=== PATIENT | female | born 1980 ===

== ENCOUNTER 2018-01-10 14:43 | Emergency (ER) | payer MEDICAID ==
[2018-01-10 15:09] VITALS: O2SAT 99
--- NOTE | 2018-01-10 15:17 | C.PDOC ---
History Of Present Illness 37-YEAR-OLD FEMALE, PRESENTS TO THE EMERGENCY DEPARTMENT CO RECURRING PANIC ATTACK. PS PENDING PSYCH APPT 01/14. CURRENT EPISODE SIM TO PRIOR, ASSOC L FACIAL AND PERIORAL PARESTHESIA. PS PARESTHESIA SIM TO PRIOR. HO PANIC ATTACKS X 5 YEARS, CURRENTLY NOT ON MEDS FOR SAME. "I'M JUST TIRED OF THIS HAPPENING". PS HAVING "ALOT OF STRESS" W HOUSING, FAMILY. EXAM NONTOXIC PSYCH CRYING BUT CONSOLABLE; CALM COOPERATIVE NO SI/SA, ACTIVE PSYCHOSIS, DRUG INTOX REMAINDER NEG MDM PT OFFERED CRISIS EVAL BUT DEFERS @ THIS TIME. DOES NOT WANT ADMISSION. Time Seen by Provider: 01/10/18 15:07 Chief Complaint (Nursing): Anxiety History Per: Patient History/Exam Limitations: no limitations Past Medical History Reviewed: Historical Data, Nursing Documentation, Vital Signs Vital Signs: Last Vital Signs Temp 98.8 F 01/10/18 15:07 Pulse 87 01/10/18 15:07 Resp 16 01/10/18 15:07 BP 118/80 01/10/18 15:07 Pulse Ox 99 01/10/18 16:11 - Medical History PMH: Anxiety Family History: States: No Known Family Hx - Social History Hx Alcohol Use: No Hx Substance Use: No - Immunization History Hx Tetanus Toxoid Vaccination: No Hx Influenza Vaccination: No Hx Pneumococcal Vaccination: No Review Of Systems Gastrointestinal: Negative for: Nausea, Vomiting Neurological: Positive for: Other ( L FACIAL AND PERIORAL PARESTHESIA. ) Psych: Positive for: Anxiety, Psychosis. Negative for: Suicidal ideation Physical Exam - Physical Exam Appears: Non-toxic, No Acute Distress, Other (PSYCH CRYING BUT CONSOLABLE; CALM COOPERATIVE NO SI/SA, ACTIVE PSYCHOSIS, DRUG INTOX) Skin: Normal Color, Warm, Dry Head: Atraumatic, Normacephalic Eye(s): bilateral: Normal Inspection Nose: Normal Oral Mucosa: Moist Neck: Normal ROM Chest: Symmetrical Cardiovascular: Rhythm Regular, No Murmur Respiratory: Normal Breath Sounds, No Accessory Muscle Use Extremity: Normal ROM, No Deformity Neurological/Psych: Oriented x3 ED Course And Treatment ECG: Interpreted By Me, Viewed By Me ECG Rhythm: Sinus Rhythm ECG Interpretation: No Acute Changes Interpretation Of ECG: QTc 486 Rate From EC O2 Sat by Pulse Oximetry: 99 (RA) - Radiology CXR: Interpreted by Me, Viewed By Me CXR Interpretation: Yes: Infiltrates Reevaluation Time: 16:13 Reassessment Condition: Improved (PS FEELS BETTER, PARESTHESIA RESOLVED. ADVISED KEEP PSYCH APPT SCHEDULED) Medical Decision Making Medical Decision Making: PT OFFERED CRISIS EVAL BUT DEFERS @ THIS TIME. DOES NOT WANT ADMISSION. Disposition Counseled Patient/Family Regarding: Diagnosis, Need For Followup, Rx Given - Disposition Referrals: YOUR,PSYCHIATRIST [Other] Disposition: HOME/ ROUTINE Disposition Time: 16:14 Condition: IMPROVED Prescriptions: Alprazolam [Xanax] 0.5 mg PO ONCE #1 tab Instructions: Panic Disorder (DC) Forms: [employer] (Mongolian) - Clinical Impression Clinical Impression: Panic anxiety syndrome - Scribe Statement The provider has reviewed the documentation as recorded by the Scribe (Heather Davenport) All medical record entries made by the Scribe were at my direction and personally dictated by me. I have reviewed the chart and agree that the record accurately reflects my personal performance of the history, physical exam, medical decision making, and the department course for this patient. I have also personally directed, reviewed, and agree with the discharge instructions and disposition.
[2018-01-10 17:01] VITALS: BP 107/71; PULSE 62; RESP 20; TEMP 97.6
== END 2018-01-10 17:00 | disposition home or self-care (01) ==
LOC: C.ER 14:43
DX: F41.0 Panic disorder [episodic paroxysmal anxiety] (principal)